=== PATIENT | female | born 1960 | race Caucasian/White ===

== ENCOUNTER → 2019-08-06 | Outpatient (CLI) | payer OTHER | LOC: M.RAD 16:07 | DX: M25.551 Pain in right hip (principal) ==

== ENCOUNTER 2019-09-05 20:15 | Emergency (ER) | payer OTHER ==
[~2019-09-05] VITALS: Ht 177.8 cm; Wt 163.3 kg
[2019-09-05] MEDS ORDERED: TOPROL XL50 MG PO (20:27)
[2019-09-05] MEDS ORDERED: LIPITOR40 MG PO (20:27)
[2019-09-05] MEDS ORDERED: BENAZEPRIL HCL20 MG PO (20:27)
[2019-09-05] MEDS ORDERED: DARIFENACIN ER15 MG PO (20:28)
[2019-09-05] MEDS ORDERED: POTASSIUM20 PO (20:28)
[2019-09-05] MEDS ORDERED: LASIX 40 MG TAB40 MG PO (20:28)
[2019-09-05] MEDS ORDERED: XARELTO10 MG PO (20:28)
[2019-09-05] MEDS ORDERED: TAMBOCOR 100 M100 M1 PO (20:29)
[2019-09-05] MEDS ORDERED: FYAVOLV 0.5 MG1 EACH PO (20:29)
[2019-09-05] MEDS ORDERED: GLUCOSAMINE &1 EAC1 PO (20:30)
[2019-09-05] MEDS ORDERED: LEXAPRO 10 MG T10 M1 PO (20:30)
[2019-09-05] MEDS ORDERED: OMEPRAZOLE40 MG PO (20:30)
[2019-09-05] MEDS ORDERED: SUPER B COMPLE1 EAC2 PO (20:30)
[2019-09-05] MEDS ORDERED: IRON325 PO (20:31)
[2019-09-05] MEDS ORDERED: FISH OIL 1,001000 M3 PO (20:31)
[2019-09-05] MEDS ORDERED: FOLIC ACID1 MG PO (20:31)
[2019-09-05] MEDS ORDERED: PROBIOTIC1 EAC7 PO (20:31)
[2019-09-05] MEDS ORDERED: MAGNESIUM250 M1 PO (20:32)
[2019-09-05 21:04] LABS: ABSOLUTE EOSINOPHILS 0.2 thou/uL (0.0-0.7); ABSOLUTE LYMPHOCYTES 1.8 thou/uL (0.8-5.3); ABSOLUTE MONOCYTES 0.5 thou/uL (0.0-1.2); ABSOLUTE NEUTROPHILS 2.8 thou/uL (1.6-8.1); BASOPHILS 0.7 %; EOSINOPHILS 3.2 %; HEMATOCRIT 38.3 % (37.0-47.0); HEMOGLOBIN 13.3 gm/dL (12.0-15.0); LYMPHOCYTES 33.6 %; MCH 31.6 pg (26.0-34.0); MCHC 34.6 g/dL (28.0-37.0); MCV 91.4 fL (80.0-100.0); MONOCYTES 9.4 %; MPV 6.8 fl. (7.2-11.1); NUCLEATED RBCS 0 /100WBC; PLATELET COUNT* 225 thou/uL (150-400); POLYS 53.1 %; RDW-CV 14.2 % (10.5-14.5); WBC 5.3 thou/uL (4.0-11.0)
[2019-09-05 21:10] LABS: CALCIUM 8.2 mg/dL (8.5-10.1); CREATININE 1.1 mg/dL (0.6-1.3); INR 1.1; POTASSIUM 3.6 mmol/L (3.5-5.1); PROTIME 10.9 Seconds (9.20-11.50)
[2019-09-05 21:14] LABS: ALBUMIN 3.4 g/dL (3.4-5.0); TOTAL BILIRUBIN 0.5 mg/dL (<0.1-1.0); TOTAL PROTEIN 6.4 g/dL (6.4-8.2)
[2019-09-05 22:49] VITALS: BP 144/79
== END 2019-09-05 22:49 | disposition home or self-care (01) ==
LOC: M.ERS 20:15
PROVIDERS: Emergency Medicine
DX: R20.2 Paresthesia of skin (principal); I48.91 Unspecified atrial fibrillation; I10 Essential (primary) hypertension; Z96.651 Presence of right artificial knee joint; Z79.899 Other long term (current) drug therapy; Z79.01 Long term (current) use of anticoagulants

== ENCOUNTER 2020-04-18 08:32 | Emergency (ER) | payer OTHER ==
[~2020-04-18] VITALS: Ht 177.8 cm; Wt 161.0 kg
[~2020-04-18 08:32] MED LIST: BENAZEPRIL HCL20 MG PO; DARIFENACIN ER15 MG PO; FISH OIL 1,001000 M3 PO; FOLIC ACID1 MG PO; FYAVOLV 0.5 MG1 EACH PO; GLUCOSAMINE &1 EAC1 PO; IRON325 PO; LASIX 40 MG TAB40 MG PO; LEXAPRO 10 MG T10 M1 PO; LIPITOR40 MG PO; MAGNESIUM250 M1 PO; OMEPRAZOLE40 MG PO; POTASSIUM20 PO; PROBIOTIC1 EAC7 PO; SUPER B COMPLE1 EAC2 PO; TAMBOCOR 100 M100 M1 PO; TOPROL XL50 MG PO; XARELTO10 MG PO
[2020-04-18] MEDS ORDERED: HYDROCODON-ACE1 EAC7 PO (09:27)
[2020-04-18 09:48] VITALS: BP 173/95
== END 2020-04-18 09:50 | disposition home or self-care (01) ==
LOC: M.ERS 08:32
DX: M71.552 Other bursitis, not elsewhere classified, left hip (principal); I10 Essential (primary) hypertension; I48.91 Unspecified atrial fibrillation; Z79.899 Other long term (current) drug therapy

== ENCOUNTER → 2021-03-20 | Outpatient (CLI) | payer OTHER ==
[~2021-03-20] MED LIST changes: +HYDROCODON-ACE1 EAC7 PO
== END ==
LOC: M.RAD 06:46
PROVIDERS: ATTEND Family Medicine
DX: Z12.31 Encounter for screening mammogram for malignant neoplasm of breast (principal); N63.20 Unspecified lump in the left breast, unspecified quadrant

== ENCOUNTER → 2021-03-21 | Outpatient (CLI) | payer OTHER | LOC: M.RAD 13:55 | PROVIDERS: ATTEND Family Medicine | DX: R92.2 Inconclusive mammogram (principal) ==